=== PATIENT | female | born 1945 | race Caucasian/White ===

== ENCOUNTER 2023-10-17 09:22 | Inpatient (IN) | payer MEDICAID ==
[~2023-10-17] VITALS: Ht 162.6 cm; Wt 70.8 kg
[2023-10-17 09:38] VITALS: BP 143/75
[2023-10-17] MEDS ORDERED: BUPIVACAINE 0.5% 10 ML VIAL SC ONE (09:50)
[2023-10-17] MEDS ORDERED: MORPHINE Sulfate 2 MG/ML SYR IV ONE (09:50)
[2023-10-17] MEDS ORDERED: ATORVASTATIN CA20 M1 PO (10:18)
[2023-10-17] MEDS ORDERED: ASPIRIN ADULT L81 M2 PO (10:18)
[2023-10-17] MEDS ORDERED: FUROSEMIDE20 M1 PO (10:19)
[2023-10-17] MEDS ORDERED: METOPROLOL TART50 M1 PO (10:19)
[2023-10-17] MEDS ORDERED: QUETIAPINE FUMA25 MG PO (10:20)
[2023-10-17] MEDS ORDERED: RIVASTIGMINE1 EACH TD (10:20)
[2023-10-17] MEDS ORDERED: SPIRIVA -- 3018 MCG INH (10:21)
[2023-10-17] MEDS ORDERED: B121000 MCG/1 IM (10:22)
[2023-10-17] MEDS ORDERED: DICLOFENAC SODI50 GM T (10:23)
[2023-10-17 11:18] LABS: BASO % 0.3 % (0.0-1.0); EOS # 0.1 10*3/uL (0.0-0.4); EOS % 1.3 % (1.0-4.0); HEMATOCRIT 42.6 % (37.0-47.0); LYMPH # 1.4 10*3/uL (1.3-4.4); LYMPH % 15.6 % (27.0-41.0); MEAN CELL VOLUME 87.3 fl (81.0-99.0); MEAN CORPUSCULAR HGB 28.7 pg (27.0-31.0); MEAN CORPUSCULAR HGB CONC 32.9 g/dl (33.0-37.0); MEAN PLATELET VOLUME 9.2 fl (9.6-12.3); MONO # 0.6 10*3/uL (0.1-1.0); MONO % 6.5 % (3.0-9.0); NEUT # 6.6 10*3/uL (2.3-7.9); NEUT % 75.8 % (47.0-73.0); PLATELET COUNT AUTOMATED 237 10*3/uL (130-400); RED BLOOD COUNT 4.88 10*6/uL (4.10-5.10); RED CELL DISTRI WIDTH 14.3 % (0-14.5); WHITE BLOOD COUNT 8.7 10*3/uL (4.8-10.8)
[2023-10-17 11:29] LABS: ACT PARTIAL THROMBO TIME 26.7 SECONDS (20.0-32.1)
[2023-10-17 11:34] LABS: BILIRUBIN Negative (Negative); BLOOD Negative (Negative); CLARITY Clear (Clear); COLOR Yellow (Yellow); GLUCOSE Negative (Negative); KETONE Negative (Negative); LEUKO ESTERASE Negative (Negative); NITRITE Negative (Negative); PH 6.5 (4.5-8.0); SPECIFIC GRAVITY 1.015 (1.001-1.030); UROBILINOGEN 0.2 E.U./dl (0.0-1.0)
[2023-10-17 11:48] LABS: YEAST TRACE
[2023-10-17 11:50] LABS: BACTERIA TRACE; EPITHELIAL CELLS 0-2
[2023-10-17 11:55] LABS: BUN 17 mg/dl (9-23); CHLORIDE 104 mmol/L (98-107); POTASSIUM 3.7 mmol/L (3.4-5.1)
[2023-10-17] MEDS ORDERED: BISACODYL 5 MG TAB PO PRN (12:35)
[2023-10-17] MEDS ORDERED: MORPHINE Sulfate 2 MG/ML SYR IV PRN (12:35)
[2023-10-17] MEDS ORDERED: ACETAMINOPHEN 325 MG TAB PO PRN (12:35)
[2023-10-17] MEDS ORDERED: TEMAZEPAM 15 MG CAP PO PRN (12:35)
[2023-10-17] MEDS ORDERED: Ondansetron Hydrochloride 4 MG/2 ML VIAL IV PRN (12:35)
[2023-10-17] MEDS ORDERED: Magnesium Hydroxide 30 ML UDC PO PRN (12:35)
[2023-10-17] MEDS ORDERED: Acetaminophen/Hydrocodone 5 MG/325 MG TABLET PO PRN (12:35)
[2023-10-17 13:11] VITALS: BP 128/63
[2023-10-17 16:25] VITALS: BP 134/60
[2023-10-17] MEDS ORDERED: EXELON1 EAC1 T (18:55)
[2023-10-17 20:00] VITALS: BP 130/68
[2023-10-18] VITALS (12 sets, daily range): BP systolic 80–147; BP diastolic 42–101
[2023-10-18] MEDS ORDERED: Ropivacaine Hydrochloride 5 MG/ML 20 ML AMP IJ ONE (07:15)
[2023-10-18] MEDS ORDERED: Midazolam Hydrochloride 2 MG/2 ML VIAL ONE (07:16)
[2023-10-18] MEDS ORDERED: SODIUM CHLORIDE 0.9% 1,000 ML IV ONE ×4 (07:18→11:47)
[2023-10-18 07:20] LABS: BASO % 0.5 % (0.0-1.0); EOS # 0.2 10*3/uL (0.0-0.4); HEMATOCRIT 40.8 % (37.0-47.0); LYMPH # 1.1 10*3/uL (1.3-4.4); MEAN CELL VOLUME 86.4 fl (81.0-99.0); MEAN CORPUSCULAR HGB 28.2 pg (27.0-31.0); MEAN CORPUSCULAR HGB CONC 32.6 g/dl (33.0-37.0); MEAN PLATELET VOLUME 9.4 fl (9.6-12.3); MONO # 0.7 10*3/uL (0.1-1.0); MONO % 8.3 % (3.0-9.0); NEUT # 6.6 10*3/uL (2.3-7.9); NEUT % 75.7 % (47.0-73.0); PLATELET COUNT AUTOMATED 241 10*3/uL (130-400); RED BLOOD COUNT 4.72 10*6/uL (4.10-5.10); RED CELL DISTRI WIDTH 14.1 % (0-14.5); WHITE BLOOD COUNT 8.6 10*3/uL (4.8-10.8)
[2023-10-18] MEDS ORDERED: TRANEXAMIC ACID IN NACL,ISO-OS 100 ML IV ONE ×2 (07:30→07:40)
[2023-10-18] MEDS ORDERED: ceFAZolin sodium/sodium chlor 20 ML IV ONE ×2 (07:30→07:40)
[2023-10-18 07:45] LABS: ALKALINE PHOSPHATASE 120 U/L (46-116); BUN 17 mg/dl (9-23); CHLORIDE 102 mmol/L (98-107); CHOLESTEROL 137 mg/dL (<200); FREE T4 1.24 ng/dl (0.89-1.76); LDL CHOLESTEROL 74 mg/dL (9-159); POTASSIUM 3.1 mmol/L (3.4-5.1); SGPT/ALT 22 U/L (5-49); TOTAL PROTEIN 6.5 gm/dL (6.0-8.0); TRIGLYCERIDES 64 mg/dl (<150)
[2023-10-18 09:08] LABS: VITAMIN D, 25-HYDROXY 34.9 ng/mL (30-100)
[2023-10-18] MEDS ORDERED: Cholecalciferol 2,000 UNIT TABLET (50 MCG) PO SCH (10:00)
[2023-10-18] MEDS ORDERED: POTASSIUM CHLORIDE 20 MEQ TAB PO ONE (14:00)
[2023-10-18] MEDS ORDERED: ceFAZolin sodium 1 GM in SYRINGE INFUSION 10 ML IV SCH (16:00)
[2023-10-18] MEDS ORDERED: ePHEDrine Sulfate 25 MG/5 ML SYRINGE IV ONE (16:06)
[2023-10-18] MEDS ORDERED: PROPOFOL 200 MG/20 ML VIAL IV ONE (16:06)
[2023-10-18] MEDS ORDERED: Midazolam Hydrochloride 2 MG/2 ML VIAL IV ONE (16:06)
[2023-10-19] VITALS: BP 134/52
[2023-10-19 06:58] LABS: BASO % 0.3 % (0.0-1.0); EOS % 0.2 % (1.0-4.0); HEMATOCRIT 37.3 % (37.0-47.0); LYMPH % 9.9 % (27.0-41.0); MEAN CELL VOLUME 88.6 fl (81.0-99.0); MEAN CORPUSCULAR HGB 28.7 pg (27.0-31.0); MEAN CORPUSCULAR HGB CONC 32.4 g/dl (33.0-37.0); MEAN PLATELET VOLUME 9.6 fl (9.6-12.3); NEUT # 8.2 10*3/uL (2.3-7.9); NEUT % 79.2 % (47.0-73.0); PLATELET COUNT AUTOMATED 200 10*3/uL (130-400); RED BLOOD COUNT 4.21 10*6/uL (4.10-5.10); RED CELL DISTRI WIDTH 14.4 % (0-14.5); WHITE BLOOD COUNT 10.4 10*3/uL (4.8-10.8)
[2023-10-19 07:34] LABS: BUN 12 mg/dl (9-23); CHLORIDE 109 mmol/L (98-107); POTASSIUM 3.4 mmol/L (3.4-5.1)
[2023-10-19 08:00] VITALS: BP 125/55
[2023-10-19] MEDS ORDERED: IPRATROPIUM BROMIDE 0.5 MG/2.5 ML AMP NEB SCH (09:45)
[2023-10-19] MEDS ORDERED: Metoprolol Tartrate 50 MG TAB PO SCH (10:00)
[2023-10-19] MEDS ORDERED: TIOTROPIUM BROMIDE 18 MCG CAPSULES INHALER INH SCH (10:00)
[2023-10-19] MEDS ORDERED: ASPIRIN ENTERIC COATED 81 MG TAB PO SCH (10:00)
[2023-10-19] MEDS ORDERED: FUROSEMIDE 20 MG TAB PO SCH (10:00)
[2023-10-19] MEDS ORDERED: QUETIAPINE FUMARATE 25 MG TAB PO SCH (10:00)
[2023-10-19 12:00] VITALS: BP 127/57
[2023-10-19 16:00] VITALS: BP 122/53
[2023-10-19] MEDS ORDERED: AQUAPHOR OINTMENT Base 50 GM TUBE T SCH (18:00)
[2023-10-19] MEDS ORDERED: HEEL PROTECTOR DEVICE ONE (19:20)
[2023-10-19] MEDS ORDERED: CHAIR CUSHION DEVICE ONE (19:20)
[2023-10-19 20:00] VITALS: BP 118/63
[2023-10-19 21:11] LABS: BASO % 0.3 % (0.0-1.0); EOS # 0.1 10*3/uL (0.0-0.4); EOS % 0.9 % (1.0-4.0); HEMATOCRIT 38.3 % (37.0-47.0); LYMPH # 1.5 10*3/uL (1.3-4.4); LYMPH % 12.2 % (27.0-41.0); MEAN CELL VOLUME 87.8 fl (81.0-99.0); MEAN CORPUSCULAR HGB 28.2 pg (27.0-31.0); MEAN CORPUSCULAR HGB CONC 32.1 g/dl (33.0-37.0); MEAN PLATELET VOLUME 9.1 fl (9.6-12.3); MONO # 1.2 10*3/uL (0.1-1.0); NEUT # 9.3 10*3/uL (2.3-7.9); NEUT % 76.3 % (47.0-73.0); PLATELET COUNT AUTOMATED 199 10*3/uL (130-400); RED BLOOD COUNT 4.36 10*6/uL (4.10-5.10); RED CELL DISTRI WIDTH 14.5 % (0-14.5); WHITE BLOOD COUNT 12.2 10*3/uL (4.8-10.8)
[2023-10-19 21:32] LABS: ALKALINE PHOSPHATASE 92 U/L (46-116); BUN 14 mg/dl (9-23); CHLORIDE 106 mmol/L (98-107); POTASSIUM 3.5 mmol/L (3.4-5.1); SGPT/ALT 44 U/L (5-49); TOTAL PROTEIN 6.2 gm/dL (6.0-8.0)
[2023-10-19] MEDS ORDERED: ATORVASTATIN CALCIUM 20 MG TAB PO SCH (22:00)
[2023-10-19] MEDS ORDERED: Rivastigmine Tartrate 9.5 MG/24 HR PATCH T SCH (22:00)
[2023-10-19] MEDS ORDERED: NYSTATIN 15 GM BOT T SCH (22:00)
[2023-10-20] VITALS: BP 134/61
[2023-10-20] MEDS ORDERED: SODIUM CHLORIDE 0.9% 500 ML IV ONE (04:50)
[2023-10-20 06:07] LABS: BASO % 0.3 % (0.0-1.0); EOS # 0.1 10*3/uL (0.0-0.4); EOS % 0.8 % (1.0-4.0); HEMATOCRIT 36.1 % (37.0-47.0); LYMPH % 8.8 % (27.0-41.0); MEAN CELL VOLUME 87.6 fl (81.0-99.0); MEAN CORPUSCULAR HGB 28.9 pg (27.0-31.0); MEAN PLATELET VOLUME 9.9 fl (9.6-12.3); MONO # 1.1 10*3/uL (0.1-1.0); MONO % 10.1 % (3.0-9.0); NEUT # 8.6 10*3/uL (2.3-7.9); NEUT % 79.5 % (47.0-73.0); PLATELET COUNT AUTOMATED 212 10*3/uL (130-400); RED BLOOD COUNT 4.12 10*6/uL (4.10-5.10); RED CELL DISTRI WIDTH 14.6 % (0-14.5); WHITE BLOOD COUNT 10.8 10*3/uL (4.8-10.8)
[2023-10-20 08:00] VITALS: BP 152/81
[2023-10-20 12:00] VITALS: BP 101/82
[2023-10-20 12:08] LABS: BILIRUBIN Negative (Negative); BLOOD 2+ (Negative); CLARITY Clear (Clear); COLOR Yellow (Yellow); GLUCOSE Negative (Negative); KETONE 2+ (Negative); LEUKO ESTERASE Negative (Negative); NITRITE Negative (Negative); PH 5.5 (4.5-8.0); UROBILINOGEN 0.2 E.U./dl (0.0-1.0)
[2023-10-20 16:00] VITALS: BP 122/58
[2023-10-20] MEDS ORDERED: ACETAMINOPHEN 650 MG SUPP R PRN (17:25)
[2023-10-20 20:00] VITALS: BP 107/53
[2023-10-21] VITALS: BP 120/45
[2023-10-21 06:30] LABS: BASO % 0.4 % (0.0-1.0); EOS # 0.3 10*3/uL (0.0-0.4); EOS % 4.1 % (1.0-4.0); HEMATOCRIT 32.1 % (37.0-47.0); LYMPH % 12.5 % (27.0-41.0); MEAN CELL VOLUME 87.7 fl (81.0-99.0); MEAN PLATELET VOLUME 9.6 fl (9.6-12.3); MONO # 0.9 10*3/uL (0.1-1.0); MONO % 11.3 % (3.0-9.0); NEUT # 5.6 10*3/uL (2.3-7.9); NEUT % 71.1 % (47.0-73.0); PLATELET COUNT AUTOMATED 191 10*3/uL (130-400); RED BLOOD COUNT 3.66 10*6/uL (4.10-5.10); RED CELL DISTRI WIDTH 14.5 % (0-14.5); WHITE BLOOD COUNT 7.8 10*3/uL (4.8-10.8)
[2023-10-21 06:49] LABS: BUN 17 mg/dl (9-23); CHLORIDE 109 mmol/L (98-107)
[2023-10-21] MEDS ORDERED: POTASSIUM CHLORIDE 20 MEQ TAB PO ONE (07:35)
[2023-10-21 08:00] VITALS: BP 129/62
[2023-10-21] MEDS ORDERED: VITAMIN D350 MCG PO (11:06)
[2023-10-21] MEDS ORDERED: HYDROCODONE-AC1 EAC1 PO (11:07)
[2023-10-21 12:00] VITALS: BP 113/54
== END 2023-10-21 12:30 | DRG 323 ==
LOC: ED 09:22 → EDHOLD 12:27 → 4E 12:27
PROVIDERS: Emergency Medicine; Family Medicine; Orthopaedic Surgery; Student in an Organized Health Care Education/Training Program; ADMIT Internal Medicine; ATTEND Internal Medicine
PROC: 3E0T3BZ Introduction of Anesthetic Agent into Peripheral Nerves and Plexi, Percutaneous Approach (ICD-10-PCS; 2023-10-17)
PROC: 0SRS0JZ Replacement of Left Hip Joint, Femoral Surface with Synthetic Substitute, Open Approach (ICD-10-PCS; principal; 2023-10-18)
PROC: 3E0T3BZ Introduction of Anesthetic Agent into Peripheral Nerves and Plexi, Percutaneous Approach (ICD-10-PCS; 2023-10-18)
DX: S72.032A Displaced midcervical fracture of left femur, initial encounter for closed fracture (principal); R65.10 Systemic inflammatory response syndrome (SIRS) of non-infectious origin without acute organ dysfunction; G93.40 Encephalopathy, unspecified; I95.81 Postprocedural hypotension; E87.6 Hypokalemia; R73.9 Hyperglycemia, unspecified; F03.90 Unspecified dementia, unspecified severity, without behavioral disturbance, psychotic disturbance, mood disturbance, and anxiety; J44.9 Chronic obstructive pulmonary disease, unspecified; I10 Essential (primary) hypertension; E78.5 Hyperlipidemia, unspecified; Z86.73 Personal history of transient ischemic attack (TIA), and cerebral infarction without residual deficits; W18.39XA Other fall on same level, initial encounter; Y93.89 Activity, other specified; Y92.89 Other specified places as the place of occurrence of the external cause; Y99.8 Other external cause status; Z80.42 Family history of malignant neoplasm of prostate; Z79.899 Other long term (current) drug therapy; Z79.82 Long term (current) use of aspirin

== ENCOUNTER → 2023-11-06 | Outpatient (CLI) | payer MEDICAID ==
[~2023-11-06] MED LIST: ASPIRIN ADULT L81 M2 PO; ATORVASTATIN CA20 M1 PO; B121000 MCG/1 IM; DICLOFENAC SODI50 GM T; EXELON1 EAC1 T; FUROSEMIDE20 M1 PO; HYDROCODONE-AC1 EAC1 PO; METOPROLOL TART50 M1 PO; QUETIAPINE FUMA25 MG PO; RIVASTIGMINE1 EACH TD; SPIRIVA -- 3018 MCG INH; VITAMIN D350 MCG PO
== END | disposition home or self-care (01) ==
LOC: ORTHO 03:33
PROVIDERS: ATTEND Orthopaedic Surgery
DX: S72.032D Displaced midcervical fracture of left femur, subsequent encounter for closed fracture with routine healing (principal); M47.816 Spondylosis without myelopathy or radiculopathy, lumbar region; X58.XXXD Exposure to other specified factors, subsequent encounter

== ENCOUNTER → 2024-01-06 | Outpatient (CLI) | payer MEDICAID | END | disposition home or self-care (01) | LOC: ORTHO 00:52 | PROVIDERS: ATTEND Orthopaedic Surgery | DX: S72.032D Displaced midcervical fracture of left femur, subsequent encounter for closed fracture with routine healing (principal); M47.816 Spondylosis without myelopathy or radiculopathy, lumbar region; M47.898 Other spondylosis, sacral and sacrococcygeal region; Z96.642 Presence of left artificial hip joint; X58.XXXD Exposure to other specified factors, subsequent encounter ==

== ENCOUNTER 2024-01-10 16:29 | Inpatient (IN) | payer MEDICAID ==
[~2024-01-10] VITALS: Ht 163 cm; Wt 62.8 kg
[2024-01-10 16:35] VITALS: BP 131/55
[2024-01-10] MEDS ORDERED: Ondansetron Hydrochloride 4 MG/2 ML VIAL IV ONE (16:35)
[2024-01-10] MEDS ORDERED: MORPHINE Sulfate 2 MG/ML SYR IV ONE (16:35)
[2024-01-10] MEDS ORDERED: CEFDINIR300 MG PO (16:43)
[2024-01-10] MEDS ORDERED: HYDR1000 PO (16:44)
[2024-01-10] MEDS ORDERED: SEROQUEL25 MG PO (16:46)
[2024-01-10] MEDS ORDERED: K2 PLUS D3 TAB1 EACH PO (16:51)
[2024-01-10 17:07] LABS: BASO % 0.3 % (0.0-1.0); EOS % 0.4 % (1.0-4.0); HEMATOCRIT 40.1 % (37.0-47.0); LYMPH # 1.2 10*3/uL (1.3-4.4); LYMPH % 13.1 % (27.0-41.0); MEAN CELL VOLUME 87.6 fl (81.0-99.0); MEAN CORPUSCULAR HGB 27.7 pg (27.0-31.0); MEAN CORPUSCULAR HGB CONC 31.7 g/dl (33.0-37.0); MEAN PLATELET VOLUME 9.1 fl (9.6-12.3); MONO # 0.6 10*3/uL (0.1-1.0); MONO % 6.6 % (3.0-9.0); NEUT # 7.2 10*3/uL (2.3-7.9); NEUT % 79.2 % (47.0-73.0); PLATELET COUNT AUTOMATED 241 10*3/uL (130-400); RED BLOOD COUNT 4.58 10*6/uL (4.10-5.10); RED CELL DISTRI WIDTH 15.3 % (0-14.5); WHITE BLOOD COUNT 9.1 10*3/uL (4.8-10.8)
[2024-01-10] MEDS ORDERED: Magnesium Hydroxide 30 ML UDC PO PRN (17:10)
[2024-01-10] MEDS ORDERED: ACETAMINOPHEN 325 MG TAB PO PRN (17:10)
[2024-01-10] MEDS ORDERED: BISACODYL 5 MG TAB PO PRN (17:10)
[2024-01-10] MEDS ORDERED: MORPHINE Sulfate 2 MG/ML SYR IV PRN (17:10)
[2024-01-10] MEDS ORDERED: Ondansetron Hydrochloride 4 MG/2 ML VIAL IV PRN (17:10)
[2024-01-10 17:19] LABS: ACT PARTIAL THROMBO TIME 25.1 SECONDS (20.0-32.1)
[2024-01-10 17:21] LABS: BUN 21 mg/dl (9-23); CHLORIDE 103 mmol/L (98-107); POTASSIUM 4.1 mmol/L (3.4-5.1)
[2024-01-10 17:30] VITALS: BP 140/58
[2024-01-10] MEDS ORDERED: Nicotine 14 MG PATCH T SCH (18:15)
[2024-01-10] MEDS ORDERED: TRANEXAMIC ACID IN NACL,ISO-OS 100 ML IV ONE (18:30)
[2024-01-10] MEDS ORDERED: Acetaminophen/Hydrocodone ES 7.5/325 tablet PO PRN (18:45)
[2024-01-10 19:58] VITALS: BP 118/54
[2024-01-10 20:00] VITALS: BP 118/54
[2024-01-10] MEDS ORDERED: Ceftriaxone Sodium 1 GM in SYRINGE INFUSION 10 ML IV SCH (20:00)
[2024-01-10] MEDS ORDERED: Rivastigmine Tartrate 9.5 MG/24 HR PATCH T SCH (22:14)
[2024-01-11] VITALS (10 sets, daily range): BP systolic 101–165; BP diastolic 42–70
[2024-01-11 04:47] LABS: BILIRUBIN Negative (Negative); BLOOD 3+ (Negative); CLARITY Cloudy (Clear); COLOR Yellow (Yellow); GLUCOSE Negative (Negative); KETONE Trace (Negative); LEUKO ESTERASE 1+ (Negative); NITRITE Negative (Negative); PH 5.5 (4.5-8.0); SPECIFIC GRAVITY >= 1.030 (1.001-1.030)
[2024-01-11 05:31] LABS: EPITHELIAL CELLS 21-30; WBC 31-40 wbc/hpf (0-5)
[2024-01-11 05:32] LABS: BACTERIA 1+; RBC TNTC rbc/hpf (0-2)
[2024-01-11 05:58] LABS: ALKALINE PHOSPHATASE 145 U/L (46-116); BUN 21 mg/dl (9-23); CHLORIDE 103 mmol/L (98-107); POTASSIUM 4.1 mmol/L (3.4-5.1); SGPT/ALT 17 U/L (5-49); TOTAL PROTEIN 6.5 gm/dL (6.0-8.0)
[2024-01-11 06:10] LABS: BASO % 0.4 % (0.0-1.0); EOS # 0.1 10*3/uL (0.0-0.4); HEMATOCRIT 39.3 % (37.0-47.0); LYMPH # 1.3 10*3/uL (1.3-4.4); LYMPH % 13.2 % (27.0-41.0); MEAN CELL VOLUME 87.9 fl (81.0-99.0); MEAN CORPUSCULAR HGB 27.7 pg (27.0-31.0); MEAN CORPUSCULAR HGB CONC 31.6 g/dl (33.0-37.0); MEAN PLATELET VOLUME 9.8 fl (9.6-12.3); MONO # 0.7 10*3/uL (0.1-1.0); MONO % 7.5 % (3.0-9.0); NEUT # 7.5 10*3/uL (2.3-7.9); NEUT % 77.5 % (47.0-73.0); PLATELET COUNT AUTOMATED 250 10*3/uL (130-400); RED BLOOD COUNT 4.47 10*6/uL (4.10-5.10); RED CELL DISTRI WIDTH 15.5 % (0-14.5); WHITE BLOOD COUNT 9.6 10*3/uL (4.8-10.8)
[2024-01-11] MEDS ORDERED: Lactated Ringer's Solution 1,000 ML IV ONE (07:14)
[2024-01-11] MEDS ORDERED: ceFAZolin sodium/sodium chlor 20 ML IV ONE ×2 (07:14→08:00)
[2024-01-11] MEDS ORDERED: TRANEXAMIC ACID IN NACL,ISO-OS 100 ML IV ONE ×2 (07:14→08:00)
[2024-01-11] MEDS ORDERED: Ropivacaine Hydrochloride 5 MG/ML 20 ML AMP IJ ONE (07:53)
[2024-01-11] MEDS ORDERED: Bupivacaine Hydrochloride/Ep2 30 ML VIAL ONE (08:01)
[2024-01-11] MEDS ORDERED: SEVOFLURANE 250 ML BOT INH ONE (09:50)
[2024-01-11] MEDS ORDERED: Dexamethasone Sodium Phospha 20 MG/5 ML VIAL IV ONE (09:50)
[2024-01-11] MEDS ORDERED: Ondansetron Hydrochloride 4 MG/2 ML VIAL IV ONE (09:50)
[2024-01-11] MEDS ORDERED: Phenylephrine Hydrochloride 1 MG/10 ML SYRINGE IV ONE (09:50)
[2024-01-11] MEDS ORDERED: Lidocaine Hydrochloride 2% 10 ML AMP IM ONE (09:50)
[2024-01-11] MEDS ORDERED: PROPOFOL 200 MG/20 ML VIAL IV ONE (09:50)
[2024-01-11] MEDS ORDERED: fentaNYL CITRATE 100 MCG/2 ML VIAL IV ONE (09:50)
[2024-01-11] MEDS ORDERED: QUETIAPINE FUMARATE 25 MG TAB PO SCH (10:00)
[2024-01-11] MEDS ORDERED: Metoprolol Tartrate 50 MG TAB PO SCH (10:00)
[2024-01-11] MEDS ORDERED: Cholecalciferol 2,000 UNIT TABLET (50 MCG) PO SCH (10:00)
[2024-01-11] MEDS ORDERED: ASPIRIN ENTERIC COATED 81 MG TAB PO SCH (10:00)
[2024-01-11] MEDS ORDERED: ATORVASTATIN CALCIUM 20 MG TAB PO SCH (22:00)
[2024-01-12] VITALS: BP 112/54
[2024-01-12 06:02] LABS: BASO % 0.2 % (0.0-1.0); EOS % 0.4 % (1.0-4.0); HEMATOCRIT 31.3 % (37.0-47.0); LYMPH # 0.9 10*3/uL (1.3-4.4); LYMPH % 9.7 % (27.0-41.0); MEAN CELL VOLUME 86.2 fl (81.0-99.0); MEAN CORPUSCULAR HGB 27.8 pg (27.0-31.0); MEAN CORPUSCULAR HGB CONC 32.3 g/dl (33.0-37.0); MEAN PLATELET VOLUME 9.5 fl (9.6-12.3); MONO % 9.9 % (3.0-9.0); NEUT # 7.6 10*3/uL (2.3-7.9); NEUT % 79.3 % (47.0-73.0); PLATELET COUNT AUTOMATED 180 10*3/uL (130-400); RED BLOOD COUNT 3.63 10*6/uL (4.10-5.10); RED CELL DISTRI WIDTH 15.6 % (0-14.5); WHITE BLOOD COUNT 9.7 10*3/uL (4.8-10.8)
[2024-01-12 06:21] LABS: BUN 21 mg/dl (9-23); CHLORIDE 105 mmol/L (98-107)
[2024-01-12 08:00] VITALS: BP 121/58
[2024-01-12] MEDS ORDERED: Enoxaparin Sodium 40 MG/0.4 ML SYR SC SCH (10:00)
[2024-01-12 12:00] VITALS: BP 102/55
[2024-01-12 20:00] VITALS: BP 104/55
[2024-01-13] VITALS: BP 145/63
[2024-01-13 06:22] LABS: BASO % 0.4 % (0.0-1.0); EOS # 0.1 10*3/uL (0.0-0.4); EOS % 1.8 % (1.0-4.0); LYMPH # 1.1 10*3/uL (1.3-4.4); LYMPH % 13.8 % (27.0-41.0); MEAN CELL VOLUME 85.4 fl (81.0-99.0); MEAN CORPUSCULAR HGB 28.4 pg (27.0-31.0); MEAN CORPUSCULAR HGB CONC 33.2 g/dl (33.0-37.0); MEAN PLATELET VOLUME 9.9 fl (9.6-12.3); MONO # 0.8 10*3/uL (0.1-1.0); MONO % 10.5 % (3.0-9.0); NEUT # 5.6 10*3/uL (2.3-7.9); NEUT % 73.1 % (47.0-73.0); PLATELET COUNT AUTOMATED 184 10*3/uL (130-400); RED BLOOD COUNT 3.28 10*6/uL (4.10-5.10); RED CELL DISTRI WIDTH 15.6 % (0-14.5); WHITE BLOOD COUNT 7.6 10*3/uL (4.8-10.8)
[2024-01-13 08:00] VITALS: BP 103/54
[2024-01-13 12:00] VITALS: BP 120/62
[2024-01-13 16:00] VITALS: BP 110/58
[2024-01-13 20:00] VITALS: BP 130/60
[2024-01-14] VITALS: BP 141/80
[2024-01-14 07:00] LABS: BASO % 0.7 % (0.0-1.0); EOS # 0.2 10*3/uL (0.0-0.4); EOS % 2.8 % (1.0-4.0); HEMATOCRIT 26.8 % (37.0-47.0); LYMPH # 1.1 10*3/uL (1.3-4.4); LYMPH % 18.6 % (27.0-41.0); MEAN CELL VOLUME 86.2 fl (81.0-99.0); MEAN CORPUSCULAR HGB 28.9 pg (27.0-31.0); MEAN CORPUSCULAR HGB CONC 33.6 g/dl (33.0-37.0); MEAN PLATELET VOLUME 9.6 fl (9.6-12.3); MONO # 0.7 10*3/uL (0.1-1.0); MONO % 12.3 % (3.0-9.0); NEUT # 3.8 10*3/uL (2.3-7.9); NEUT % 65.1 % (47.0-73.0); PLATELET COUNT AUTOMATED 192 10*3/uL (130-400); RED BLOOD COUNT 3.11 10*6/uL (4.10-5.10); RED CELL DISTRI WIDTH 15.5 % (0-14.5); WHITE BLOOD COUNT 5.8 10*3/uL (4.8-10.8)
[2024-01-14 08:00] VITALS: BP 160/70
[2024-01-14 12:00] VITALS: BP 134/64
[2024-01-14] MEDS ORDERED: HYDROCODONE-AC1 EAC2 PO (14:11)
[2024-01-14 16:00] VITALS: BP 126/59
== END 2024-01-14 18:52 | DRG 308 ==
LOC: ED 16:29 → EDHOLD 16:39 → 4E 16:39
PROVIDERS: Emergency Medicine; Orthopaedic Surgery; Registered Nurse; ADMIT Internal Medicine; ATTEND Internal Medicine
PROC: 0QS606Z Reposition Right Upper Femur with Intramedullary Internal Fixation Device, Open Approach (ICD-10-PCS; principal; 2024-01-11)
PROC: 3E0T3BZ Introduction of Anesthetic Agent into Peripheral Nerves and Plexi, Percutaneous Approach (ICD-10-PCS; 2024-01-11)
DX: S72.141A Displaced intertrochanteric fracture of right femur, initial encounter for closed fracture (principal); J96.01 Acute respiratory failure with hypoxia; G93.41 Metabolic encephalopathy; E44.0 Moderate protein-calorie malnutrition; N30.01 Acute cystitis with hematuria; J44.9 Chronic obstructive pulmonary disease, unspecified; I10 Essential (primary) hypertension; E78.5 Hyperlipidemia, unspecified; Z96.642 Presence of left artificial hip joint; R73.9 Hyperglycemia, unspecified; F03.B0 Unspecified dementia, moderate, without behavioral disturbance, psychotic disturbance, mood disturbance, and anxiety; F41.8 Other specified anxiety disorders; Z87.891 Personal history of nicotine dependence; Z80.42 Family history of malignant neoplasm of prostate; Z88.8 Allergy status to other drugs, medicaments and biological substances; W18.39XA Other fall on same level, initial encounter; Y93.89 Activity, other specified; Y92.89 Other specified places as the place of occurrence of the external cause; Y99.8 Other external cause status; Z68.23 Body mass index [BMI] 23.0-23.9, adult

== ENCOUNTER → 2024-02-19 | Outpatient (CLI) | payer MEDICAID ==
[~2024-02-19] MED LIST changes: +CEFDINIR300 MG PO; +HYDR1000 PO; +HYDROCODONE-AC1 EAC2 PO; +K2 PLUS D3 TAB1 EACH PO; +SEROQUEL25 MG PO
== END | disposition home or self-care (01) ==
LOC: ORTHO 01:59
PROVIDERS: ATTEND Orthopaedic Surgery
DX: S72.141D Displaced intertrochanteric fracture of right femur, subsequent encounter for closed fracture with routine healing (principal); X58.XXXD Exposure to other specified factors, subsequent encounter

== ENCOUNTER → 2024-05-30 | Outpatient (CLI) | payer MEDICAID | END | disposition home or self-care (01) | LOC: ORTHO 01:37 | PROVIDERS: ATTEND Orthopaedic Surgery | DX: S72.141D Displaced intertrochanteric fracture of right femur, subsequent encounter for closed fracture with routine healing (principal); M16.11 Unilateral primary osteoarthritis, right hip; M21.851 Other specified acquired deformities of right thigh; X58.XXXD Exposure to other specified factors, subsequent encounter ==